=== PATIENT | male | born 1970 | race Caucasian/White ===

== ENCOUNTER 2018-02-12 15:45 | Emergency (ER) | payer OTHER ==
[~2018-02-12] VITALS: Ht 170.2 cm; Wt 91.9 kg
[~2018-02-12 15:45] MED LIST: NXM/40 PO; ZALE10CA PO; ZLF/100 PO; ZOLP10TA6 PO
[2018-02-12 15:53] VITALS: TEMP 36.8; Ht 170.2 cm; Wt 91.9 kg
--- NOTE | 2018-02-12 16:58 | DIAGNOSTIC IMAGING REPORT ---
LEFT HIP 2 VIEWS CLINICAL HISTORY: Fall with left hip pain. FINDINGS: AP and frog-leg views of the left hip are obtained. No prior studies are available for comparison at the time of dictation. The skeletal structures are well mineralized. No fracture is identified in the left hip or the visualized left hemipelvis. The joint space of the hip is preserved. The overlying soft tissues are normal in appearance. IMPRESSION: No acute bony abnormality is identified in the left hip. Electronically signed by: Chance Farrell M.D. 02/12/2018 4:56 PM Dictated Date/Time: 02/12/2018 4:56 PM
[2018-02-12] MEDS ORDERED: TRAM-10 PO (17:06)
[2018-02-12 17:15] VITALS: BP 137/84; PULSE 84; O2SAT 98
--- NOTE | 2018-02-13 01:19 | EMERGENCY ROOM VISIT NOTE ---
History First contact with patient: 16:03 Chief Complaint: HIP PAIN Stated Complaint: PAIN IN LEFT HIP S/P WORK [employer] History of Present Illness The patient is a 47 year old male who presents to the Emergency Room with complaints of left hip pain after he twisted his left ankle yesterday while walking down a flight of steps. The patient reports that the injury happened at around 7:35 AM. The patient reports that he fell, striking his left knee on the floor, but denies any ankle or knee pain. He reports pain over the lateral left hip. The patient reports a prior history of back issues and sciatica, but reports that this feels different. He currently denies any back discomfort. Weightbearing worsens his pain to a 6 out of 10. He denies any paresthesias or numbness of the left lower extremity. Review of Systems 10 system review was performed and was negative except for pertinent positives and negatives as indicated in history of present illness Past Medical/Surgical History Medical Problems: (1) Chronic Sinusitis Nec (2) Deviated Nasal Septum (3) Tobacco Use Disorder Family History Unremarkable Social History Smoking Status: Current Every Day Smoker Alcohol Use: occasionally Marital Status: Housing Status: lives with family Occupation Status: employed Current/Historical Medications Scheduled Esomeprazole Magnesium (Nexium), 40 MG PO DAILY Sertraline HCl (Sertraline HCl), 150 MG PO DAILY Scheduled PRN Tramadol (Ultram), 1 TAB PO Q4H PRN for Pain Zaleplon (Zaleplon), 10 MG PO HS PRN for Sleep Zolpidem Tartrate (Zolpidem Tartrate), 10 MG PO HS PRN for Sleep Physical Exam Vital Signs Date Time Temp Pulse Resp B/P (MAP) Pulse Ox O2 Delivery O2 Flow Rate FiO2 02/12/18 17:15 84 16 137/84 98 02/12/18 15:53 36.8 96 17 136/83 95 Room Air Physical Exam CONSTITUTIONAL: Healthy and well nourished. Alert and oriented X 3 with positive affect. Patient does not appear in any acute distress. HEENT: Normocephalic, atraumatic. Pupils equal, round and reactive. NECK: Full active range of motion without discomfort. MUSCULOSKELETAL: Examination of the left hip does not show any obvious edema or ecchymosis. He has no tenderness to palpation through the left SI joint or sciatic notch. He has mild discomfort with internal and external rotation of the hip. He has a mildly positive sitting straight leg raise. Otherwise the patient has no tenderness to palpation about the knee or ankle region. Pedal pulses are intact. INTEGUMENTARY: No rash or other significant dermatologic conditions noted. NEUROLOGIC: Left lower extremity is sensory intact. Medical Decision & Procedures ER Provider Diagnostic Interpretation: My interpretation of left hip x-rays does not show any acute fractures or dislocations. Radiologist report is as follows: LEFT HIP 2 VIEWS CLINICAL HISTORY: Fall with left hip pain. FINDINGS: AP and frog-leg views of the left hip are obtained. No prior studies are available for comparison at the time of dictation. The skeletal structures are well mineralized. No fracture is identified in the left hip or the visualized left hemipelvis. The joint space of the hip is preserved. The overlying soft tissues are normal in appearance. IMPRESSION: No acute bony abnormality is identified in the left hip. ED Course Patient history and physical exam were performed. Nurse's notes were reviewed. Vital signs were reviewed and were normal. X-rays of the left hip were normal. The patient was encouraged to limit on feet activities, including heavy lifting and sitting for long periods of time. Although the patient has isolated hip pain, he was advised that this could also be sciatica since he does have a mild positive sitting straight leg raise. I did encourage the patient to follow-up with his Worker's Compensation physician for further reevaluation and management. He was encouraged to alternate ibuprofen and Tylenol as needed for pain. The patient refused any prescription analgesics, was happy with plan of care, and rated his discomfort a 4 out of 10 at the conclusion of my exam. Medical Decision Medication Reconcilliation Current Medication List: was personally reviewed by me Blood Pressure Screening Patient's blood pressure: Normal blood pressure Impression Primary Impression: Left hip pain Additional Impressions: Status post fall Work related injury Departure Information Prescriptions Tramadol (Ultram) 50 Mg Tab 1 TAB PO Q4H Y for Pain, #15 TAB For Initial Treatment Prov: Sagar Sunshine PA 02/12/18 Referrals Cristian Hunter M.D. (PCP) Patient Instructions [facility] Problem Qualifiers
== END 2018-02-12 17:16 | disposition home or self-care (01) ==
LOC: C.EDB 15:46 → C.EDD 17:16
DX: M25.552 Pain in left hip (principal); M25.572 Pain in left ankle and joints of left foot; X50.1XXA Overexertion from prolonged static or awkward postures, initial encounter; W10.9XXA Fall (on) (from) unspecified stairs and steps, initial encounter; W22.8XXA Striking against or struck by other objects, initial encounter; Y99.0 Civilian activity done for income or pay; F17.200 Nicotine dependence, unspecified, uncomplicated; Z79.899 Other long term (current) drug therapy

== ENCOUNTER 2019-07-03 04:11 | Observation (INO) ==
--- OUTSIDE RECORDS SUMMARY | 2019-07-03 04:15 | External Medical Summary | Continuity of Care Document ---
:1970 Author Name Mathew Suarez Address Unavailable Unavailable , Care Team Providers Name Role Phone Bret Suarez Unavailable [email or web address] [email or web address], [email or web address] Unavailable Unavailable Problems Active medical history not documented Allergies and Adverse Reactions Allergy history not documented Medications Medications not documented Procedures Procedures not documented Immunizations Immunizations not documented Plan of Treatment Planned Observations Planned Goals not documented Results No Known Results Results not documented Encounters Appointment; Alverto Queen M.D. 19-Mar-2011 16:00 Encounter Diagnosis: Problem not documented
--- OUTSIDE RECORDS SUMMARY | 2019-07-03 04:15 | External Medical Summary | Continuity of Care Document ---
:1970 Author Name Mathew Suarez Address Unavailable Unavailable , Care Team Providers Name Role Phone Bret Suarez Unavailable [email or web address] [email or web address], UNKNOWN Unavailable Unavailable Problems Active medical [...]
[2019-07-03 04:49] LABS: Hematocrit (blood only) 45.6 % (42-52); Hemoglobin 15.8 g/dL (14.0-18.0); Mean Corpuscular Hemoglobin 30.8 pg (25-34); Mean Corpuscular Hgb Conc 34.6 g/dL (32-36); Mean Corpuscular Volume 88.9 fL (80-100); Mean Platelet Volume 9.3 fL (7.4-10.4); Platelet Count 203 K/uL (130-400); RDW Coefficient of Variation 12.6 % (11.5-14.5); RDW Standard Deviation 41.4 fL (36.4-46.3); Red Blood Count 5.13 M/uL (4.7-6.1); White Blood Count 12.41 K/uL (4.8-10.8)
[2019-07-03 04:59] LABS: Partial Thromboplastin Ratio 1.1; Partial Thromboplastin Time 29.1 Seconds (21.0-31.0); Prothrombin Time 10.2 Seconds (9.0-12.0)
[2019-07-03 05:14] LABS: Blood Urea Nitrogen 15 mg/dl (7-18); Carbon Dioxide 27 mmol/L (21-32); Chloride 104 mmol/L (98-107); Creatinine Clr Calc Pharmacy 97.5 ml/min; Est GFR (African American) 99.6; Est GFR (Non-African American) 85.9; Potassium 3.7 mmol/L (3.5-5.1); Sodium 137 mmol/L (136-145)
[2019-07-03 05:15] LABS: Alanine Aminotransferase 28 U/L (12-78); Albumin Globulin Ratio 0.9 (0.9-2); Albumin Level 3.8 gm/dl (3.4-5.0); Alkaline Phosphatase 69 U/L (45-117); Aspartate Aminotransferase 17 U/L (15-37); Bilirubin,Total 0.5 mg/dl (0.2-1); Calcium 8.8 mg/dl (8.5-10.1); Globulin 4.4 gm/dl (2.5-4.0); Glucose 112 mg/dl (70-99); Total Protein 8.2 gm/dl (6.4-8.2); Troponin I < 0.015 ng/ml (0-0.045)
[2019-07-03] MEDS ORDERED: CLOPIDOGREL BISULFATE 300 MG TAB PO STA (05:34)
[2019-07-03] MEDS ORDERED: SIMVASTATIN 40 MG TAB PO STA (05:34)
[2019-07-03 05:52] LABS: Basophils # (auto) 0.02 K/uL (0-0.2); Basophils % (auto) 0.2 %; Eosinophils % (auto) 2.4 %; Immature Granulocytes # (auto) 0.02 K/uL (0.00-0.02); Immature Granulocytes % (auto) 0.2 %; Lymphocytes # (auto) 5.26 K/uL (1.2-3.4); Lymphocytes % (auto) 42.4 %; Monocytes % (auto) 4.8 %; Neutrophils # (auto) 6.21 K/uL (1.4-6.5); RBC Morphology Unremarkable
[2019-07-03] MEDS: SODIUM CHLORIDE 0.9% 500 ML IV SCH ×2 (06:07→10:26)
[2019-07-03] MEDS ORDERED: OPTIRAY 320 125ml IV PRN (06:08)
--- NOTE | 2019-07-03 06:14 | CT Scan Report ---
CT head/brain wo con CT DOSE: 614.27 mGy.cm HISTORY: Stroke evaluation TECHNIQUE: Multiaxial CT images of the head were performed without the use of intravenous contrast. A dose lowering technique was utilized adhering to the principles of ALARA. Comparison: None. Findings: The paranasal sinuses and mastoid air cells are clear. The calvarium and skull base are int act. The ventricles and sulci are within normal limits. There is no mass, hematoma, midline shift, or acute infarct. Impression: No acute intracranial abnormality. ACT 112: Negative or not required by law. The above report was generated using voice recognition software. It may contain grammatical, syntax or spelling errors. Electronically signed by: Obey Issa M.D. 07/03/2019 6:12 AM
--- NOTE | 2019-07-03 06:20 | History & Physical Report ---
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 MRI/MRA of the brain, 2D echo for additional stroke work-up Neurology consult RE TIA Permissive hypertension for now Check hemoglobin A1c, lipid profile nicotine patch PRN DVT prophylaxis per Lovenox subcu Full code History of Present Illness Chief Complaint: Left facial numbness, left upper extremity numbness Primary Care Provider: Cristian Hunter MD History obtained from patient, family, and records. Medical history significant for EMILE on CPAP, mood disorder, GERD, ongoing tobacco abuse. 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 Patient also noted transient left-sided facial, left upper extremity numbness symptoms along with achy headache symptoms without blurred vision. May have had a short- lived episode sometime ago as per . Stroke alert called upon arrival at the ER. Symptoms currently improving as per patient. 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 Allergies Allergy/AdvReac Type Severity Reaction Status Date / Time No Known Allergies Allergy Unverified 07/03/19 04:49 Home Medications Home Medications Medication Instructions Recorded Confirmed Type esomeprazole magnesium [Nexium] 40 mg PO DAILY 07/03/19 07/03/19 History sertraline 200 mg PO DAILY 07/03/19 07/03/19 History zolpidem 10 mg PO HS PRN 07/03/19 07/03/19 History Past Med/Surg History Medical History (Updated 07/03/19 @ 08:24 by Brandon Pearce MD) Depression Strain of right gastrocnemius muscle (Acute) Family History (Updated 07/03/19 @ 06:00 by Kristian Ventura) Other Stroke Social History (Updated 07/03/19 @ 06:00 by Kristian Ventura) Preferred Language: [place] Communication Ability: Effective In Flight Technician Required: No Beliefs That Will Affect Care: None Current Living Situation: Spouse current occupational status: employed Other Information That Helps Us Care for You: No Feels Safe at Home: Yes Safety Concerns: Feels Safe At This Time Smoking Status: Current every day smoker Tobacco Type: cigarettes ; Cigarettes Per Day: 10 ; Do You Dip or Chew Tobacco: No ; Second Hand Exposure: No ; Tobacco Cessation Education Requested by Patient: No Hx Alcohol Use: Yes Hx Substance Use: No Review of Systems Review of Systems: As per HPI, all 10 systems reviewed, all other ROS negative Physical Exam Physical Exam: GENERAL: Comfortable, pleasant, obese, no respiratory distress SKIN: Normal color, warm HEENT: Healed scar on the forehead, pink palpebral conjunctivae, no ptosis, moist buccal mucosa NECK : Supple, short neck, no tenderness CHEST : CTA, no tenderness HEART : RRR, no obvious murmurs ABDOMEN: Some distention, nontender EXTREMITIES : No LE swelling/tenderness, no other conspicuous deformities noted NEUROLOGIC : Coherent, no facial asymmetry, no other gross focality Results & Data Vital Signs (Past 12 Hours) Vital Signs Temp Pulse Resp BP Pulse Ox 07/03/19 06:07 88 18 143/96 H 96 07/03/19 05:30 93 H 22 140/91 95 07/03/19 05:00 94 H 16 142/98 H 96 07/03/19 04:31 94 H 23 151/77 H 97 07/03/19 04:27 100 H 24 136/96 97 07/03/19 04:26 36.8 C 100 H 18 136/96 97 Laboratory Results Laboratory Results WBC 12.41 K/uL (4.8-10.8) H 07/03/19 04:37 RBC 5.13 M/uL (4.7-6.1) 07/03/19 04:37 Hgb 15.8 g/dL (14.0-18.0) 07/03/19 04:37 Hct 45.6 % (42-52) 07/03/19 04:37 MCV 88.9 fL (80-100) 07/03/19 04:37 MCH 30.8 pg (25-34) 07/03/19 04:37 MCHC 34.6 g/dL (32-36) 07/03/19 04:37 RDW Std Deviation 41.4 fL (36.4-46.3) 07/03/19 04:37 RDW Coeff of Imelda 12.6 % (11.5-14.5) 07/03/19 04:37 Plt Count 203 K/uL (130-400) 07/03/19 04:37 MPV 9.3 fL (7.4-10.4) 07/03/19 04:37 Immature Gran % (Auto) 0.2 % 07/03/19 04:37 Neut % (Auto) 50.0 % 07/03/19 04:37 Lymph % (Auto) 42.4 % 07/03/19 04:37 [place] % (Auto) 4.8 % 07/03/19 04:37 Eos % (Auto) 2.4 % 07/03/19 04:37 Baso % (Auto) 0.2 % 07/03/19 04:37 Immature Gran # (Auto) 0.02 K/uL (0.00-0.02) 07/03/19 04:37 Neut # (Auto) 6.21 K/uL (1.4-6.5) 07/03/19 04:37 Lymph # (Auto) 5.26 K/uL (1.2-3.4) H 07/03/19 04:37 [place] # (Auto) 0.60 K/uL (0.11-0.59) H 07/03/19 04:37 Eos # (Auto) 0.30 K/uL (0-0.5) 07/03/19 04:37 Baso # (Auto) 0.02 K/uL (0-0.2) 07/03/19 04:37 RBC Morphology Unremarkable 07/03/19 04:37 PT 10.2 Seconds (9.0-12.0) 07/03/19 04:37 INR 1.0 (0.9-1.1) 07/03/19 04:37 APTT 29.1 Seconds (21.0-31.0) 07/03/19 04:37 PTT Ratio 1.1 07/03/19 04:37 Sodium 137 mmol/L (136-145) 07/03/19 04:37 Potassium 3.7 mmol/L (3.5-5.1) 07/03/19 04:37 Chloride 104 mmol/L (98-107) 07/03/19 04:37 Carbon Dioxide 27 mmol/L (21-32) 07/03/19 04:37 Anion Gap 6.0 (3-11) 07/03/19 04:37 BUN 15 mg/dl (7-18) 07/03/19 04:37 Creatinine 1.02 mg/dl (0.6-1.4) 07/03/19 04:37 Est Cr Clr Drug Dosing 97.5 ml/min 07/03/19 04:37 Est GFR ( Amer) 99.6 07/03/19 04:37 Est GFR (Non-Af Amer) 85.9 07/03/19 04:37 BUN/Creatinine Ratio 15.0 (10-20) 07/03/19 04:37 Glucose 112 mg/dl (70-99) H 07/03/19 04:37 POC Glucose 109 (70-99) H 07/03/19 04:36 Calcium 8.8 mg/dl (8.5-10.1) 07/03/19 04:37 Magnesium 2.0 mg/dl (1.8-2.4) 07/03/19 04:37 Total Bilirubin 0.5 mg/dl (0.2-1) 07/03/19 04:37 AST 17 U/L (15-37) 07/03/19 04:37 ALT 28 U/L (12-78) 07/03/19 04:37 Alkaline Phosphatase 69 U/L (45-117) 07/03/19 04:37 Troponin I < 0.015 ng/ml (0-0.045) 07/03/19 04:37 Total Protein 8.2 gm/dl (6.4-8.2) 07/03/19 04:37 Albumin 3.8 gm/dl (3.4-5.0) 07/03/19 04:37 Globulin 4.4 gm/dl (2.5-4.0) H 07/03/19 04:37 Albumin/Globulin Ratio 0.9 (0.9-2) 07/03/19 04:37 Specimen Hemolysis 07/03/19 04:37 Blood Type Cancelled 07/03/19 04:37 Antibody Screen Cancelled 07/03/19 04:[address] head initial read: No CT evidence of acute intracranial process. CT angio head and neck read pending EKG as per my interpretation: Rate 95, NSR, normal axis, no ischemia
--- NOTE | 2019-07-03 06:25 | CT Scan Report ---
CT angio head w con HISTORY: Mental status change stroke eval TECHNIQUE: Multiaxial CT angiography of the head was performed IV contrast: None. Maximum intensit y projection images were also obtained. A dose lowering technique was utilized adhering to the princ iplSung. COMPARISON: None. FINDINGS: There is no mass, hematoma, midline shift, or acute infarct. 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 There is no sig nificant stenosis, occlusion, or aneurysm seen within the bilateral ACAs, MCAs, or machine repair person. IMPRESSION: No significant stenosis, occlusion, or aneurysm within the [place]. ACT 112: Negative or not required by law. The above report was generated using voice recognition software. It may contain grammatical, syntax or spelling errors. Electronically signed by: Obey Issa M.D. 07/03/2019 6:24 AM
--- NOTE | 2019-07-03 06:29 | CT Scan Report ---
CT angio neck with con HISTORY: Mental status change stroke eval TECHNIQUE: Multiaxial CT angiography of the neck was performed IV contrast: 100 cc nonionic All eun urements were calculated based on NASCET criteria. Maximum intensity projection images were also obt ained. A dose lowering technique was utilized adhering to the principles of ALARA. COMPARISON STUDY: None. FINDINGS: The aortic arch and proximal great vessels are widely patent. There is no significant sten osis, occlusion, or dissection identified within the bilateral common carotid, internal carotid, or v ertebral arteries. IMPRESSION: No significant stenosis, occlusion, or dissection identified within the carotid or vertebral arteries . ACT 112: Negative or not required by law. The above report was generated using voice recognition software. It may contain grammatical, syntax or spelling errors. Electronically signed by: Obey Issa M.D. 07/03/2019 6:27 AM
--- NOTE | 2019-07-03 07:24 | Emergency Department Note ---
Entered by Kristian Ventura acting as a scribe for History of Present Illness General Chief complaint: Stroke/CVA Symptoms Stated complaint: BP UP, CHEST PRESSURE, NUMBNESS LT ARM AND FACE Time Seen by Provider: 07/03/19 04:33 Source: patient History of Present Illness Onset (ago): hour(s) (this morning at 0200) Location: head Pain Consistency: + constant Quality: + other (stroke-like symptoms) Associated symptoms: + other (Positive for left facial numbness and mild chest pressure.) The patient is a 49 year old male who presents to the emergency department with complaints of constant stroke-like symptoms beginning this morning at 0200. The patient states that he was reading emails at work this morning when his symptoms began. He notes that he could not understand what the emails said or remember who the people were who sent them. He reports that he then had a shock in his head. The patient states that he has left facial numbness. He notes that he also developed mild chest pressure at that time. He reports that he has a history of depression. The patient states that his grandmother had a stroke. Home Medications Home Medications Medication Instructions Recorded Confirmed Type esomeprazole magnesium [Nexium] 40 mg PO DAILY 07/03/19 07/03/19 History sertraline 200 mg PO DAILY 07/03/19 07/03/19 History zolpidem 10 mg PO HS PRN 07/03/19 07/03/19 History Allergies Allergy/AdvReac Type Severity Reaction Status Date / Time No Known Allergies Allergy Unverified 07/03/19 04:49 Past Med/Surg History Medical History (Updated 07/03/19 @ 14:09 by Elina Palacios DO) Depression Strain of right gastrocnemius muscle (Acute) Family History (Updated 07/03/19 @ 06:00 by Kristian Ventura) Other Stroke Social History (Updated 07/03/19 @ 06:00 by Kristian Ventura) Preferred Language: Romanian Communication Ability: Effective Ophthalmic Surgeon Required: No Beliefs That Will Affect Care: None Current Living Situation: Spouse current occupational status: employed Other Information That Helps Us Care for You: No Feels Safe at Home: Yes Safety Concerns: Feels Safe At This Time Smoking Status: Current every day smoker Tobacco Type: cigarettes ; Cigarettes Per Day: 10 ; Do You Dip or Chew Tobacco: No ; Second Hand Exposure: No ; Tobacco Cessation Education Requested by Patient: No Hx Alcohol Use: Yes Hx Substance Use: No Review of Systems See HPI for pertinent positives & negatives. and A total of 10 systems reviewed and were otherwise negative Physical Exam Vital Signs Vital Signs - 24 hr 07/03/19 04:26 07/03/19 04:27 07/03/19 04:31 Temperature 36.8 C Temperature Source Oral Pulse Rate 100 H 100 H 94 H Pulse Rate from SpO2 Sensor 100 H 94 H Pulse Rhythm Regular Pulse Strength Normal Respiratory Rate 18 24 23 Respiratory Effort / Characteristics Non-Labored Spontaneous Respiratory Depth Normal Blood Pressure 136/96 136/96 151/77 H Blood Pressure Mean 109 106 112 Blood Pressure Position Sitting Pulse Oximetry 97 97 97 Oxygen Delivery Method Room Air Sepsis Recent Fever Within 48 Hours No Sepsis Action Taken by Nursing No Action Required 07/03/19 05:00 07/03/19 05:30 07/03/19 06:07 Temperature Temperature Source Pulse Rate 94 H 93 H 88 Pulse Rate from SpO2 Sensor 94 H 93 H 88 Pulse Rhythm Pulse Strength Respiratory Rate 16 22 18 Respiratory Effort / Characteristics Respiratory Depth Blood Pressure 142/98 H 140/91 143/96 H Blood Pressure Mean 105 103 104 Blood Pressure Position Pulse Oximetry 96 95 96 Oxygen Delivery Method Sepsis Recent Fever Within 48 Hours Sepsis Action Taken by Nursing HEENT: Head - normocephalic and atraumatic. Pupils are equal, round, and reactive to light. Extraocular eye muscles are intact and sclera are anicteric. Nose - moist nasal mucosa without discharge. Mouth - moist buccal mucosa. Orop harynx is nonerythematous and there is no tonsillar exudate or edema noted. Neck: Supple; no JVD, nuchal rigidity, cervical lymphadenopathy, or auscultated bruits. Heart: Regular rate and rhythm. There is a normal S1 and S2 with no murmurs, clicks, or gallops appreciated. Lungs: Clear to auscultation bilaterally with no wheezes, rales, or rhonchi. Abdomen: Soft, completely nontender, nondistended, with good bowel sounds. There are no palpable pulsatile masses or hepatosplenomegaly. There is no guarding, rigidity, or rebound noted. Extremities: No evidence of cyanosis, clubbing, or edema. There are easily palpable peripheral pulses. Neuro:The patient is slow to answer questions muscle strength is 5/5 in all 4 extremities. The patient has equal rectification printer strength and equal pedal push and pull. NIH stroke score of 2, droop to left corner of mouth and left eyelid, numbness to left side of face. Course Course 0428: The patient was evaluated in room A1. A stroke alert was called. A complete history and physical examination were performed. Nursing notes and previous electronic medical records were reviewed. IV lock was established and labs were drawn as above. A twelve-lead EKG was obtained 0444: I discussed the patient's case with Dr. Ramirez - Cherie Valentine. 0458: I rechecked the patient. He is feeling better. His mind seems more clear, but he has a worsening left eyelid droop. Dr. Ramirez is on Telestroke. 0528: I rediscussed the patient's case with Dr. Ramirez. He thinks that the patient most likely had a posterior MCA stroke on the right. He recommends obtaining a CTA of the head/neck with MRI later as an inpatient. He suggests dual antiplatelet therapy. The patient already had aspirin, so he recommends loading the patient with 300mg Plavix. He suggests maintenance IV fluids and initiating 40mg of Zocor. He says to make sure that the patient's magnesium is at least 2. 0607: Simvastatin 40mg PO, Clopidogrel Bisulfate 300mg PO, Sodium Chloride 500 mls @ 125 mls/hr IV 0542: Upon reevaluation, the patient is stable. I discussed the findings and the treatment plan with the patient. He expresses agreement and understanding. I spoke with Dr. Pearce of the [facility]. The patient will be evaluated for further management. Consultations Consultation #1: [id number]: I discussed the patient's case with Dr. Ramirez - Cherie Valentine. 0528: I rediscussed the patient's case with Dr. Ramirez. He thinks that the patient most likely had a posterior MCA stroke on the right. He recommends obtaining a CTA of the head/neck with MRI later as an inpatient. He suggests dual antiplatelet therapy. The patient already had aspirin, so he recommends loading the patient with 300mg Plavix. He suggests maintenance IV fluids and initiating 40mg of Zocor. He says to make sure that the patient's magnesium is at least 2. Time: 04:44 Consultation #2: I reviewed the patient's case with Dr. Pearce - HospitalistMarco Antonio. He will evaluate the patient for further management. Time: 05:42 Administered Medications Atorvastatin Calcium (Lipitor) 40 mg PO HS TEJAS Stop: 08/02/19 20:59 Last Admin: 07/03/19 20:57 Dose: 40 mg Documented by: [id number] Enoxaparin Sodium (Lovenox) 40 mg SQ QAM TEJAS Stop: 08/02/19 10:20 Last Admin: 07/03/19 12:03 Dose: 40 mg Documented by: [id number] Pantoprazole Sodium (Protonix) 40 mg PO DAILY TEJAS Stop: 08/02/19 10:20 Last Admin: 07/03/19 12:03 Dose: 40 mg Documented by: [id number] Sertraline HCl (Zoloft) 200 mg PO DAILY TEJAS Stop: 08/02/19 10:20 Last Admin: 07/03/19 12:03 Dose: 200 mg Documented by: [id number] Zolpidem Tartrate (Ambien) 5 mg PO HS PRN PRN Reason: Sleep Stop: 08/02/19 20:36 Last Admin: 07/03/19 20:57 Dose: 5 mg Documented by: [id number] Discontinued Medications Clopidogrel Bisulfate (Plavix) 300 mg PO NOW STA Stop: 07/03/19 05:35 Last Admin: 07/03/19 06:07 Dose: 300 mg Documented by: [id number] Sodium Chloride (Nss) 500 mls @ 125 mls/hr IV .Q4H TEJAS Stop: 08/02/19 05:44 Last Admin: 07/03/19 10:26 Dose: Not Given Documented by: [id number] Infusion: 07/03/19 10:26 Dose: 0 mls/hr Documented by: [id number] Admin: 07/03/19 06:07 Dose: 125 mls/hr Documented by: [id number] Lactated Ringer's (Lr) 1,000 mls @ 40 mls/hr IV .Q24H ONE Stop: 07/04/19 10:20 Last Infusion: 07/03/19 14:13 Dose: 0 mls/hr Documented by: [id number] Admin: 07/03/19 12:02 Dose: 40 mls/hr Documented by: [id number] Ioversol (Optiray 320 125ml) 120 ml IV ONCE PRN PRN Reason: Interaction Checking Stop: 07/07/19 06:07 Last Admin: 07/03/19 06:08 Dose: 120 ml Documented by: [id number] Potassium Chloride (Klor-Con M20) 40 meq PO NOW STA Stop: 07/03/19 10:22 Last Admin: 07/03/19 12:03 Dose: 40 meq Documented by: [id number] Simvastatin (Zocor) 40 mg PO NOW STA Stop: 07/03/19 05:35 Last Admin: 07/03/19 06:07 Dose: 40 mg Documented by: [id number] Critical Care Time Critical Care Time: Yes Total Critical Care Time: 45 I have personally spent 45 minutes of critical care time in the direct management of this patient. This includes bedside care, interpretation of diagnostic studies, and testing, discussion with consultants, patient, and fam nolan members, and other required patient management activities. This 45 minutes is in excess of all separately billable procedures. Medical Decision Making Differential Diagnosis Differential diagnoses include: Mullins's palsy, intracranial hemorrhage, acute CVA, and TIA. Medical Records Attestation: I reviewed the patient's medical records. Home Medications Current Medication List: was personally reviewed by me Laboratory Data Attestation: I reviewed the patient's lab results. Result diagrams: 07/04/19 06:57 07/04/19 06:57 Lab Results 07/03/19 07/03/19 07/03/19 Range/Units 04:36 04:37 04:37 WBC 12.41 H (4.8-10.8) K/uL RBC 5.13 (4.7-6.1) M/uL Hgb 15.8 (14.0-18.0) g/dL Hct 45.6 (42-52) % MCV 88.9 (80-100) fL MCH 30.8 (25-34) pg MCHC 34.6 (32-36) g/dL RDW Std Deviation 41.4 (36.4-46.3) fL RDW Coeff of Imelda 12.6 (11.5-14.5) % Plt Count 203 (130-400) K/uL MPV 9.3 (7.4-10.4) fL Immature Gran % (Auto) 0.2 % Neut % (Auto) 50.0 % Lymph % (Auto) 42.4 % [place] % (Auto) 4.8 % Eos % (Auto) 2.4 % Baso % (Auto) 0.2 % Immature Gran # (Auto) 0.02 (0.00-0.02) K/uL Neut # (Auto) 6.21 (1.4-6.5) K/uL Lymph # (Auto) 5.26 H (1.2-3.4) K/uL [place] # (Auto) 0.60 H (0.11-0.59) K/uL Eos # (Auto) 0.30 (0-0.5) K/uL Baso # (Auto) 0.02 (0-0.2) K/uL RBC Morphology Unremarkable PT 10.2 (9.0-12.0) Seconds INR 1.0 (0.9-1.1) APTT 29.1 (21.0-31.0) Seconds PTT Ratio 1.1 Sodium (136-145) mmol/L Potassium (3.5-5.1) mmol/L Chloride (98-107) mmol/L Carbon Dioxide (21-32) mmol/L Anion Gap (3-11) BUN (7-18) mg/dl Creatinine (0.6-1.4) mg/dl Est Cr Clr Drug Dosing ml/min Est GFR ( Amer) Est GFR (Non-Af Amer) BUN/Creatinine Ratio (10-20) Glucose (70-99) mg/dl POC Glucose 109 H (70-99) Estimat Average Glucose mg/dl Hemoglobin A1c (4.5-5.6) % Calcium (8.5-10.1) mg/dl Magnesium (1.8-2.4) mg/dl Total Bilirubin (0.2-1) mg/dl AST (15-37) U/L ALT (12-78) U/L Alkaline Phosphatase (45-117) U/L Troponin I (0-0.045) ng/ml Total Protein (6.4-8.2) gm/dl Albumin (3.4-5.0) gm/dl Globulin (2.5-4.0) gm/dl Albumin/Globulin Ratio (0.9-2) TSH (0.300-4.500) uIu/ml Specimen Hemolysis Blood Type Antibody Screen 07/03/19 07/03/19 07/03/19 Range/Units 04:37 04:37 04:37 WBC (4.8-10.8) K/uL RBC (4.7-6.1) M/uL Hgb (14.0-18.0) g/dL Hct (42-52) % MCV (80-100) fL MCH (25-34) pg MCHC (32-36) g/dL RDW Std Deviation (36.4-46.3) fL RDW Coeff of Imelda (11.5-14.5) % Plt Count (130-400) K/uL MPV (7.4-10.4) fL Immature Gran % (Auto) % Neut % (Auto) % Lymph % (Auto) % [place] % (Auto) % Eos % (Auto) % Baso % (Auto) % Immature Gran # (Auto) (0.00-0.02) K/uL Neut # (Auto) (1.4-6.5) K/uL Lymph # (Auto) (1.2-3.4) K/uL [place] # (Auto) (0.11-0.59) K/uL Eos # (Auto) (0-0.5) K/uL Baso # (Auto) (0-0.2) K/uL RBC Morphology PT (9.0-12.0) Seconds INR (0.9-1.1) APTT (21.0-31.0) Seconds PTT Ratio Sodium 137 (136-145) mmol/L Potassium 3.7 (3.5-5.1) mmol/L Chloride 104 (98-107) mmol/L Carbon Dioxide 27 (21-32) mmol/L Anion Gap 6.0 (3-11) BUN 15 (7-18) mg/dl Creatinine 1.02 (0.6-1.4) mg/dl Est Cr Clr Drug Dosing 97.5 ml/min Est GFR ( Amer) 99.6 Est GFR (Non-Af Amer) 85.9 BUN/Creatinine Ratio 15.0 (10-20) Glucose 112 H (70-99) mg/dl POC Glucose (70-99) Estimat Average Glucose 137 mg/dl Hemoglobin A1c 6.4 H (4.5-5.6) % Calcium 8.8 (8.5-10.1) mg/dl Magnesium 2.0 (1.8-2.4) mg/dl Total Bilirubin 0.5 (0.2-1) mg/dl AST 17 (15-37) U/L ALT 28 (12-78) U/L Alkaline Phosphatase 69 (45-117) U/L Troponin I < 0.015 (0-0.045) ng/ml Total Protein 8.2 (6.4-8.2) gm/dl Albumin 3.8 (3.4-5.0) gm/dl Globulin 4.4 H (2.5-4.0) gm/dl Albumin/Globulin Ratio 0.9 (0.9-2) TSH (0.300-4.500) uIu/ml Specimen Hemolysis Blood Type Cancelled Antibody Screen Cancelled 07/03/19 07/03/19 Range/Units 04:37 05:24 WBC (4.8-10.8) K/uL RBC (4.7-6.1) M/uL Hgb (14.0-18.0) g/dL Hct (42-52) % MCV (80-100) fL MCH (25-34) pg MCHC (32-36) g/dL RDW Std Deviation (36.4-46.3) fL RDW Coeff of Imelda (11.5-14.5) % Plt Count (130-400) K/uL MPV (7.4-10.4) fL Immature Gran % (Auto) % Neut % (Auto) % Lymph % (Auto) % [place] % (Auto) % Eos % (Auto) % Baso % (Auto) % Immature Gran # (Auto) (0.00-0.02) K/uL Neut # (Auto) (1.4-6.5) K/uL Lymph # (Auto) (1.2-3.4) K/uL [place] # (Auto) (0.11-0.59) K/uL Eos # (Auto) (0-0.5) K/uL Baso # (Auto) (0-0.2) K/uL RBC Morphology PT (9.0-12.0) Seconds INR (0.9-1.1) APTT (21.0-31.0) Seconds PTT Ratio Sodium (136-145) mmol/L Potassium (3.5-5.1) mmol/L Chloride (98-107) mmol/L Carbon Dioxide (21-32) mmol/L Anion Gap (3-11) BUN (7-18) mg/dl Creatinine (0.6-1.4) mg/dl Est Cr Clr Drug Dosing ml/min Est GFR ( Amer) Est GFR (Non-Af Amer) BUN/Creatinine Ratio (10-20) Glucose (70-99) mg/dl POC Glucose (70-99) Estimat Average Glucose mg/dl Hemoglobin A1c (4.5-5.6) % Calcium (8.5-10.1) mg/dl Magnesium (1.8-2.4) mg/dl Total Bilirubin (0.2-1) mg/dl AST (15-37) U/L ALT (12-78) U/L Alkaline Phosphatase (45-117) U/L Troponin I (0-0.045) ng/ml Total Protein (6.4-8.2) gm/dl Albumin (3.4-5.0) gm/dl Globulin (2.5-4.0) gm/dl Albumin/Globulin Ratio (0.9-2) TSH 3.830 (0.300-4.500) uIu/ml Specimen Hemolysis Blood Type A Positive Antibody Screen NEGATIVE Imaging Data Radiologist's Impression: Radiology results as stated below per my review and the radiologist's interpretation: CT HEAD: Comparison: None. Impression: No CT evidence of acute intracranial process. Incidental Findings: Mild mucosal thickening without sinus fluid level in the visualized segments. Old right lamina papyracea fracture. Radiologist: Francisco Gates MD. CT angio head w con FINDINGS: There is no mass, hematoma, midline shift, or acute infarct. Visualized intracranial internal carotid arteries, distal vertebral arteries, and basilar artery are widely patent. There is no significant stenosis, occlusion, or aneurysm seen within the bilateral ACAs, MCAs, or mechanical specialist. IMPRESSION: No significant stenosis, occlusion, or aneurysm within the upper [place]. ACT 112: Negative or not required by law. The above report was generated using voice recognition software. It may contain grammatical, syntax or spelling errors. Electronically signed by: Obey Issa M.D. 07/03/2019 6:[address] angio neck with con FINDINGS: The aortic arch and proximal great vessels are widely patent. There is no significant stenosis, occlusion, or dissection identified within the bilateral common carotid, internal carotid, or vertebral arteries. IMPRESSION: No significant stenosis, occlusion, or dissection identified within the carotid or vertebral arteries. ACT 112: Negative or not required by law. The above report was generated using voice recognition software. It may contain grammatical, syntax or spelling errors. Electronically signed by: Obey Issa M.D. 07/03/2019 6:27 AM ECG Data Attestation: I personally reviewed and interpreted this ECG as follows: Indication: + weakness Rate (beats per minute): 93 Rhythm: + normal sinus ECG Irwin: no Left axis deviation and no Right axis deviation ECG ST segments: no ST depression and no ST elevation Blood Pressure Blood Pressure Findings: Elevated blood pressure Blood Pressure Disposition: elevated BP felt to be situational MDM Narrative The patient is a 49 year old male who presents to the emergency department with complaints of constant stroke-like symptoms beginning this morning at 0200. The patient was in his usual state of health at work tonight when he suddenly realized he was unable to comprehend emails that he was reading or even recognize who they were from. He rested for some time and then tried again it was still unsuccessful. 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 He presents to the emergency department with his with some slow speech and obvious left-sided facial droop and facial numbness. No other focal findings were observed. A stroke alert was called and the patient went emergently for CT scan of the brain. This was negative. We participated in [employer] tele-stroke. I discussed the case with the neurologist and he recommended CTA of the head and neck and treating the patient with dual antiplatelet therapy. The patient had already taken aspirin and we gave him a dose of Plavix. The neurologist also recommended admission to the hospital and MRI/MRA of the brain and neck at a later time. The patient was not a TPA candidate since his symptoms seem to be improving. I discussed the case with the hospitalist and they will evaluate for further management. Impression & Plan Stroke Discharge Plan Visit Data *Final* Discharge Date/Time: 07/03/19 09:54 Chief Complaint: Stroke/CVA Symptoms Stated Complaint: BP UP, CHEST PRESSURE, NUMBNESS LT ARM AND FACE ED Provider: Margie Ortega Discharge Problem: Stroke Patient Disposition: Admitted As Inpatient Discharge Instructions Interventions: ED Discharge Assessment Last Done: 07/03/19 09:54 Discharge Problem: Stroke Qualifiers: CVA mechanism: unspecified Qualified Code(s): I63.9 - Cerebral infarction, unspecified The scribe's documentation has been prepared under my direction and personally reviewed by me in its entirety. I confirm that the note above accurately reflects all work, treatment, procedures, and medical decision making performed by me.
[2019-07-03 07:42] LABS: Estimated Average Glucose 137 mg/dl; Hemoglobin A1C 6.4 % (4.5-5.6)
[2019-07-03] MEDS ORDERED: NITROGLYCERIN SL 0.4 MG/TAB TAB SL PRN (10:21)
[2019-07-03] MEDS ORDERED: ACETAMINOPHEN 325 MG TAB PO PRN (10:21)
[2019-07-03] MEDS ORDERED: LACTATED RINGER'S 1,000 ML IV ONE (10:21)
[2019-07-03] MEDS ORDERED: PROMETHAZINE HCL 12.5 MG in SODIUM CHLORIDE 0.9% 50 ML IV PRN (10:21)
[2019-07-03] MEDS ORDERED: PHARMACIST DISCHARGE MED REC CONSULT PRN (10:21)
[2019-07-03] MEDS ORDERED: POTASSIUM CHLORIDE 20 MEQ TABCR PO STA (10:21)
[2019-07-03] MEDS ORDERED: TRAMADOL HCL 50 MG TABLET PO PRN (10:21)
[2019-07-03] MEDS ORDERED: LORazepam 0.25 MG/0.5 ML VIAL IV PRN (10:21)
--- NOTE | 2019-07-03 10:59 | Neurology Consultation ---
Date of Consultation July 03, 2019 Assessment & Plan (1) TIA (transient ischemic attack): A 49 year old male with history of chronic smoking and EMILE on CPAP admitted with intermittent left facial and arm numbness and intermittent language difficulty or aphasia suggestive of a probable TIA. CT Stroke protocol and MRI brain reviewed and am happy to report there is no evidence of ischemic stroke or high grade stenosis. Would recommend starting ASA 81 mg daily and Lipitor 40 mg daily. Discussed smoking cessation and encourgaed patient to use his CPAP for EMILE. HA1c suggestive of insulin resistance so patient will need to monitor as outpatient. Blood pressure appears well controlled with care home goal of SBP< 140, DBP<90 mm Hg. Would obtain TTE and telemetry for 24-hours. Neuro checks Q 4hr. Ok to discharge tomorrow. I provided patient with my contact card. He can follow up with me in [place] in 8-weeks. Patient agreed to plan of care and had no further questions. History of Present Illness Reason for Consultation: TIA Requesting Physician: Dr. Palacios Attending Physician: Elina Palacios, History of Present Illness A 49 year old male with history of EMILE on CPAP, chronic smoker, insomnia, and anxiety on SSRI presented to the ED early this morning for left facial and arm numbness and language difficulty. Denies similar symptoms. Symptoms resolved around 11 AM. Had left sided headache. Denies headache now or history of headaches. Denies history of stroke. He is not on ASA. No EtOH. No history of migraines. 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 No increased stressors. He was at work when symptoms occurred. Stroke alert was called in the ED. CT Stroke protocol was Negative. He did not receieve TPA. Allergies Allergy/AdvReac Type Severity Reaction Status Date / Time No Known Allergies Allergy Unverified 07/03/19 04:49 Home Medications Home Medications Medication Instructions Recorded Confirmed Type esomeprazole magnesium [Nexium] 40 mg PO DAILY 07/03/19 07/03/19 History sertraline 200 mg PO DAILY 07/03/19 07/03/19 History zolpidem 10 mg PO HS PRN 07/03/19 07/03/19 History Patient History Medical History (Updated 07/03/19 @ 08:24 by Brandon Pearce MD) Depression Strain of right gastrocnemius muscle (Acute) Family History (Updated 07/03/19 @ 06:00 by Kristian Ventura) Other Stroke Social History (Updated 07/03/19 @ 06:00 by Kristian Ventura) Preferred Language: Kazakh Communication Ability: Effective 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 Beliefs That Will Affect Care: None Current Living Situation: Spouse current occupational status: employed Other Information That Helps Us Care for You: No Feels Safe at Home: Yes Safety Concerns: Feels Safe At This Time Smoking Status: Current every day smoker Tobacco Type: cigarettes ; Cigarettes Per Day: 10 ; Do You Dip or Chew Tobacco: No ; Second Hand Exposure: No ; Tobacco Cessation Education Requested by Patient: No Hx Alcohol Use: Yes Hx Substance Use: No Physical Exam Physical Exam: EXAM: Constitutional: appearance normally developed, well nourished and non-obeseHead and Face: normocephalic and atraumatic Eyes: normal lids, normal conjunctiva Neck: supple Respiratory: normal effort Cardiovascular: normal pulses Abdomen: non distended Skin: no rashes, lesions, or ulcers noted Psychiatric: normal judgement and insight, normal mood and normal affect NEUROLOGIC EXAMINATION: Appearance: no acute distress Orientation: awake, alert and oriented x 3 Mental Status: alert Memory: Good Attention: normal Knowledge: appropriate Language: no aphasia Speech: no dysarthria Cranial Nerves: CN 2 - no visual defect on confrontation and pupils round, equal, reactive to light CN 3, 4, 6 - extra-ocular movements intact and no nystagmus CN 5 - facial sensation intact CN 7 - no facial asymmetry CN 8 - intact hearing CN 9, 10 - palate symmetric CN 11 - good shoulder shrug CN 12 - tongue midline Gait: stable, no ataxia and can perform tandem walking Coordination: no ataxia with finger to nose testing and heel to voss testing Sensory: intact and symmetric to light touch Muscle Tone: normal Muscle exam: 5/5 throughout Reflexes: Lira sign negative, no ankle clonus, toes down going Results & Data Vital Signs (Past 12 Hours) Vital Signs Temp Pulse Pulse Resp BP BP BP 07/03/19 10:22 36.8 C 93 H 20 116/81 07/03/19 09:54 96 H 20 130/79 07/03/19 08:55 99 H 16 123/82 07/03/19 07:31 85 20 114/77 07/03/19 06:07 88 18 143/96 H 07/03/19 05:30 93 H 22 140/91 07/03/19 05:00 94 H 16 142/98 H 07/03/19 04:31 94 H 23 151/77 H 07/03/19 04:27 100 H 24 136/96 07/03/19 04:26 36.8 C 100 H 18 136/96 Pulse Ox 07/03/19 10:22 93 07/03/19 09:54 95 07/03/19 08:55 95 07/03/19 07:31 96 07/03/19 06:07 96 07/03/19 05:30 95 07/03/19 05:00 96 07/03/19 04:31 97 07/03/19 04:27 97 07/03/19 04:26 97 Laboratory Results HA1c 6.4 Diagnostic Findings CTA head and neck: No large vessel occlusion or high grade stenosis MRI Brain: No evidence of acute stroke
--- NOTE | 2019-07-03 11:31 | Magnetic Resonance Report ---
MR angio head wo con HISTORY: Mental status change tia TECHNIQUE: 3-D [id number] MRA of the brain was performed without contrast. COMPARISON STUDY: None. FINDINGS: Visualized intracranial internal carotid arteries, distal vertebral arteries, and basilar a rtery are widely patent. There is no significant stenosis, occlusion, or aneurysm seen within the edgardo ateral ACAs, MCAs, or arabic professor. IMPRESSION: No significant stenosis, occlusion, or aneurysm within the [place]. ACT 112: Negative or not required by law. The above report was generated using voice recognition software. It may contain grammatical, syntax or spelling errors. Electronically signed by: Obey Issa M.D. 07/03/2019 11:30 AM
--- NOTE | 2019-07-03 11:39 | Magnetic Resonance Report ---
MR brain wo con HISTORY: Mental status change tia TECHNIQUE: Multiplanar multisequence MRI of the brain was performed without the use of contrast. COMPARISON STUDY: None. FINDINGS: There are no areas of restricted diffusion to suggest acute infarction. The midline structu res are intact. The paranasal sinuses are clear. The mastoid air cells are clear. The ventricles and sulci are within normal limits for age. There is no mass, hematoma, midline shift. The major vascular flow-voids at the skull base are well maintained. IMPRESSION: No acute intracranial abnormality. ACT 112: Negative or not required by law. The above report was generated using voice recognition software. It may contain grammatical, syntax or spelling errors. Electronically signed by: Obey Issa M.D. 07/03/2019 11:37 AM
[2019-07-03] MEDS: SERTRALINE HCL 100 MG TABLET PO SCH (12:03)
[2019-07-03] MEDS: ENOXAPARIN INJ 40 MG/0.4 ML SYR SQ SCH (12:03)
[2019-07-03] MEDS: PANTOprazole 40 MG TAB PO SCH (12:03)
--- NOTE | 2019-07-03 14:07 | Hospitalist Progress Note ---
Date of Service July 03, 2019 Assessment & Plan (1) TIA (transient ischemic attack): Symptoms have resolved. Brain MRI is normal. TIA suspected. Cont to monitor on telemetry for 24 hours and medical therapy started for secondary prophylaxis including ASA 81mg daily and simvastatin changed to Lipitor 40mg HS. Pt strongly advised to quit smoking. Appreciate Neuro recommendations. (2) EMILE (obstructive sleep apnea): cont CPAP HS (3) Smoker: Strongly advised to quit. Declines nicoderm at this time. States he has Chantix at home and plans to start that at discharge. (4) Depression: cont sertraline per home regimen. (5) Acid reflux: cont PPI per home regimen. (6) DVT prophylaxis: Lovenox Full Dispo-to home in am. Elina Palacios DO [facility] Hospitalist Subjective 49 yo smoker who denies heart disease or prior stroke presents with acute onset L facial and L arm numbness which lasted overnight. He reports also reading the names of people he is well-acquainted with and couldnt remember who they were despite reading their name. He reported some comprehension issues, and also some difficulty speaking. This has now resolved with workup to include brain MRI and vascular imaging negative for stroke. Echo is pending. No evidence of arrhythmia at this time. He denies any chest pain, shortnes sof breath, headache, visual changes, or dysphagia. He denies any issues with ambulation and appears to be doing much better today. Review of Systems Review of Systems: All systems reviewed & are unremarkable except as noted in HPI & below Physical Exam Physical Exam: CONSTITUTIONAL: WNWD, vitals as above, generally well- appearing EYES: EOMI bilaterally, PERRL, normal conjunctivae, no scleral icterus ENT: MMM RESPIRATORY: clear with good air movement except for mild rhonchi at the bases. No wheezing or rales. Normal respiratory effort CARDIOVASCULAR: regular rate and rhythm, S1 and 2 heard without murmurs, gallops or rubs, no JVD, no peripheral edema GASTROINTESTINAL: normal bowel sounds, soft, nontender, nondistended MUSCULOSKELETAL: strength 5/5 throughout, head is normocephalic and atraumatic SKIN: warm and dry NEUROLOGIC: CN 2-12 intact, no sensory deficit, normal cognition, normal speech, no tremor. No gross focal deficits. PSYCHIATRIC: alert cooperative and oriented to person, place and time. Results & Data Vital Signs (Past 12 Hours) Vital Signs Temp Pulse Pulse Resp BP BP BP 07/03/19 10:22 36.8 C 93 H 20 116/81 07/03/19 09:54 96 H 20 130/79 07/03/19 08:55 99 H 16 123/82 07/03/19 07:31 85 20 114/77 07/03/19 06:07 88 18 143/96 H 07/03/19 05:30 93 H 22 140/91 07/03/19 05:00 94 H 16 142/98 H 07/03/19 04:31 94 H 23 151/77 H 07/03/19 04:27 100 H 24 136/96 07/03/19 04:26 36.8 C 100 H 18 136/96 Pulse Ox 07/03/19 10:22 93 07/03/19 09:54 95 07/03/19 08:55 95 07/03/19 07:31 96 07/03/19 06:07 96 07/03/19 05:30 95 07/03/19 05:00 96 07/03/19 04:31 97 07/03/19 04:27 97 07/03/19 04:26 97 Laboratory Results Short CBC 07/03/19 Range/Units 04:37 WBC 12.41 H (4.8-10.8) K/uL Hgb 15.8 (14.0-18.0) g/dL Hct 45.6 (42-52) % Plt Count 203 (130-400) K/uL BMP 07/03/19 04:37 Sodium 137 Potassium 3.7 Chloride 104 Carbon Dioxide 27 BUN 15 Creatinine 1.02 Glucose 112 H Calcium 8.8 Cardiac Enzymes 07/03/19 Range/Units 04:37 Troponin I < 0.015 (0-0.045) ng/ml Liver Function 07/03/19 Range/Units 04:37 Total Bilirubin 0.5 (0.2-1) mg/dl AST 17 (15-37) U/L ALT 28 (12-78) U/L Alkaline Phosphatase 69 (45-117) U/L Albumin 3.8 (3.4-5.0) gm/dl Diagnostic Findings MR brain wo con HISTORY: Mental status change tia TECHNIQUE: Multiplanar multisequence MRI of the brain was performed without the use of contrast. COMPARISON STUDY: None. FINDINGS: There are no areas of restricted diffusion to suggest acute infarction. The midline structures are intact. The paranasal sinuses are clear. The mastoid air cells are clear. The ventricles and sulci are within normal limits for age. There is no mass, hematoma, midline shift. The major vascular flow-voids at the skull base are well maintained. IMPRESSION: No acute intracranial abnormality. Medications Administered Current Inpatient Medications Acetaminophen (Tylenol) 650 mg PO Q4H PRN PRN Reason: Pain or Fever Stop: 08/02/19 10:20 Aspirin (Ecotrin Ectab) 81 mg PO QAM [facility] Stop: 08/03/19 08:59 Atorvastatin Calcium (Lipitor) 40 mg PO HS [facility] Stop: 08/02/19 20:59 Clopidogrel Bisulfate (Plavix) 75 mg PO QAM [facility] Stop: 08/03/19 08:59 Enoxaparin Sodium (Lovenox) 40 mg SQ QAM [facility] Stop: 08/02/19 10:20 Last Admin: 07/03/19 12:03 Dose: 40 mg Documented by: Lorazepam (Ativan) 0.25 mg in 0.5 mls @ 0.5 mls/min IV Q4H PRN PRN Reason: Anxiety Stop: 08/02/19 10:20 Miscellaneous Information (Pharmacist Discharge Med Rec Consult) 1 ea N/A UD PRN PRN Reason: Consult Stop: 08/02/19 10:20 Nitroglycerin (Nitrostat) 0.4 mg SL UD PRN PRN Reason: Chest Pain Stop: 08/02/19 10:20 Pantoprazole Sodium (Protonix) 40 mg PO DAILY TEJAS Stop: 08/02/19 10:20 Last Admin: 07/03/19 12:03 Dose: 40 mg Documented by: Sertraline HCl (Zoloft) 200 mg PO DAILY TEJAS Stop: 08/02/19 10:20 Last Admin: 07/03/19 12:03 Dose: 200 mg Documented by: Tramadol HCl (Ultram) 25 mg PO Q4H PRN PRN Reason: Pain Stop: 08/02/19 10:20
[2019-07-03] MEDS ORDERED: ZOLPIDEM TARTRATE 5 MG TAB PO PRN (20:37)
[2019-07-03] MEDS ORDERED: ATORVASTATIN 40 MG TAB PO SCH (21:00)
[2019-07-04 07:15] LABS: Hemoglobin 14.9 g/dL (14.0-18.0); Mean Corpuscular Hemoglobin 30.8 pg (25-34); Mean Corpuscular Hgb Conc 33.9 g/dL (32-36); Mean Corpuscular Volume 91.1 fL (80-100); Platelet Count 182 K/uL (130-400); RDW Coefficient of Variation 12.6 % (11.5-14.5); RDW Standard Deviation 42.2 fL (36.4-46.3); Red Blood Count 4.83 M/uL (4.7-6.1); White Blood Count 8.79 K/uL (4.8-10.8)
[2019-07-04 07:16] LABS: Basophils # (auto) 0.02 K/uL (0-0.2); Basophils % (auto) 0.2 %; Eosinophils # (auto) 0.29 K/uL (0-0.5); Eosinophils % (auto) 3.3 %; Immature Granulocytes # (auto) 0.01 K/uL (0.00-0.02); Immature Granulocytes % (auto) 0.1 %; Lymphocytes # (auto) 4.27 K/uL (1.2-3.4); Lymphocytes % (auto) 48.6 %; Mean Platelet Volume 9.2 fL (7.4-10.4); Monocytes # (auto) 0.44 K/uL (0.11-0.59); Neutrophils # (auto) 3.76 K/uL (1.4-6.5); Neutrophils % (auto) 42.8 %
[2019-07-04 07:51] LABS: BUN Creatinine Ratio 13.1 (10-20); Calcium 8.9 mg/dl (8.5-10.1); Est GFR (African American) 112.8; Est GFR (Non-African American) 97.3
[2019-07-04] MEDS: PANTOprazole 40 MG TAB PO SCH (08:36)
[2019-07-04] MEDS: SERTRALINE HCL 100 MG TABLET PO SCH (08:36)
[2019-07-04] MEDS: ENOXAPARIN INJ 40 MG/0.4 ML SYR SQ SCH (08:36)
[2019-07-04] MEDS ORDERED: ASPIRIN 81 MG ECTAB PO SCH (09:00)
[2019-07-04] MEDS ORDERED: CLOPIDOGREL BISULFATE 75 MG TAB PO SCH (09:00)
--- NOTE | 2019-07-04 12:52 | Electrocardiogram Report ---
Test Reason : Blood Pressure : / mmHG Vent. Rate : 093 BPM Atrial Rate : 093 BPM P-R Int : 160 ms QRS Dur : 082 ms QT Int : 356 ms P-R-T Axes : 054 048 048 degrees QTc Int : 442 ms Normal sinus rhythm Normal ECG No previous ECGs available Confirmed by Stan Granados ([id number]) on 07/04/2019 12:51:29 PM Referred By: REFERRED SELF Confirmed By:Stan Granados
[2019-07-04] MEDS ORDERED: STROKE PATIENT DISCHARGE STA (13:27)
--- NOTE | 2019-07-04 13:28 | Discharge Summary ---
Date of Service July 04, 2019 Admission HPI Per Admitting Provider History obtained from patient, family, and records. Medical history significant for EMILE on CPAP, mood disorder, GERD, ongoing tobacco abuse. 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 Patient also noted transient left-sided facial, left upper extremity numbness symptoms along with achy headache symptoms without blurred vision. May have had a short- lived episode sometime ago as per . Stroke alert called upon arrival at the ER. Symptoms currently improving as per patient. 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 Admission Exam Per Admitting Provider GENERAL: Comfortable, pleasant, obese, no respiratory distress SKIN: Normal color, warm HEENT: Healed scar on the forehead, pink palpebral conjunctivae, no ptosis, moist buccal mucosa NECK : Supple, short neck, no tenderness CHEST : CTA, no tenderness HEART : RRR, no obvious murmurs ABDOMEN: Some distention, nontender EXTREMITIES : No LE swelling/tenderness, no other conspicuous deformities noted NEUROLOGIC : Coherent, no facial asymmetry, no other gross focality Principal Diagnosis TIA tobacco use PFO Discharge Data Allergies Allergy/AdvReac Type Severity Reaction Status Date / Time No Known Allergies Allergy Unverified 07/03/19 04:49 Consultations 07/03/19 05:44 ED Decision to Admit Stat 07/03/19 10:21 Consult Case Management - Discharge Planning Routine Consult Neurology Routine Ordered Studies 07/03/19 04:33 CT head/brain wo con Urgent 07/03/19 05:33 CT angio head w con Stat CT angio neck with con Stat 07/03/19 10:21 MR angio head wo con Routine MR brain wo con Routine Hospital Course (1) TIA (transient ischemic attack): Symptoms have resolved. Brain MRI is normal. TIA suspected. Cont to mo nitor on telemetry for 24 hours and medical therapy started for secondary prophylaxis including ASA 81mg daily and simvastatin changed to Lipitor 40mg HS. Pt strongly advised to quit smoking. Neurology was consulted and agreed with TIA and recommended continued secondary stroke prophlaxis and close followup with them as outpatient in the next 8 weeks. (2) EMILE (obstructive sleep apnea): cont CPAP HS (3) Smoker: Strongly advised to quit. Declines nicoderm at this time. States he has Chantix at home and plans to start that at discharge. Total Time Total Time Spent Total Time Spent (In Minutes): 60 Total Time Includes: Examination of the Patient, Discharge Planning, Medication Reconciliation and Communication With Other Providers Discharge Plan Discharge Items Patient Disposition: Home - Self-Care Reason For Visit: TIA Discharge Diagnosis: TIA tobacco use PFO Health Concerns: Quitting smoking Activity: Resume your previous activity Non-emergency contact: Primary Care Provider Call non-emergency contact if: you have any medication questions, your symptoms worsen, your pain is not controlled, your pain is worsening, your pain is unusual for you, your pain is concerning for you and you have a fever Follow-up/Referrals: Cristian Hunter MD [Primary Care Provider] - Brayan Gates, [Physician] - Diet: Regular Addtl Attending Provider Instructions: Please take all medications as instructed on discharge list below. New medications for you include aspirin and atorvastatin, which are given to prevent stroke or TIA in the future. Please follow-up with [facility] in 4 weeks time. It is recommended that you see your primary care physician within one week of discharge from the hospital to ensure you are still doing well. Someone will contact you after the weekend to help set this up. It is strongly recommended that you quit smoking as this is bad for your health and raises your risk of heart disease and stroke. It sounds like you have a great plan for this with the Chantix, which is encouraged. It was a pleasure taking care of you! Please call if you have any questions or problems. You can reach a [facility] hospitalist on duty at [facility] 24 hours a day by calling [phone]. Take care of yourself. Elina Palacios DO [facility] Hospitalist Pending Studies at Discharge: No Stand-Alone Forms: Medications to Prevent Stroke, My [facility], Work/School Release (Inpt), Smoking Cessation Medications and DC Order Prescriptions: New atorvastatin 40 mg Tablet 40 mg PO HS Qty: 30 RF: 1 aspirin [Ecotrin Low Strength] 81 mg Tablet,Delayed Release (Dr/Ec) 81 mg PO QAM Qty: 90 RF: 1 Continued sertraline 100 mg Tablet 200 mg PO DAILY RF: 0 esomeprazole magnesium [Nexium] 40 mg Capsule,Delayed Release(Dr/Ec) 40 mg PO DAILY RF: 0 zolpidem 10 mg Tablet 10 mg PO HS PRN (Reason: Sleep) RF: 0 Discharge Orders: Discharge Order (Routine); Ordered 07/04/19 Ordered By: Elina Palacios Admission Data Admit Date/Time: 07/03/19 06:22 Attending Provider: Elina Palacios Admit Provider: Brandon Pearce Primary Care Provider: Cristian Hunter Other Providers: Brandon Pearce ; Mendy Reynolds ; Reagan Breaux Kathleen ; Brayan Gates Other Interventions: Discharge Summary Assessment (RN) Last Done: 07/04/19 14:18 DC Date/Time DO NOT enter until pt leaves facility: 07/04/19 14:55
--- NOTE | 2019-07-04 14:32 | Pharmacy Report ---
Pharmacist Stroke Counseling - Date of Service July 04, 2019 - Scope: Pharmacy has been consulted to provide medication discharge counseling for this patient admitted with transient ischemic attack as per the Pharmacist Discharge Counseling for Stroke Patients Protocol. - Medications on Discharge: Home Medications Medication Instructions Recorded Confirmed esomeprazole magnesium [Nexium] 40 mg PO DAILY 07/03/19 07/03/19 sertraline 200 mg PO DAILY 07/03/19 07/03/19 zolpidem 10 mg PO HS PRN 07/03/19 07/03/19 New Rx's Medication Instructions Recorded aspirin [Ecotrin Low Strength] 81 mg PO QAM #90 tab 07/04/19 atorvastatin 40 mg PO HS #30 tab 07/04/19 - Action: The above medications, specifically ones for stroke treatment/prophylaxis, have been reviewed in detail with the patient and/or patient agricultural sales representative(s) prior to discharge. This includes indication, common adverse reactions, drug interactions, and medication administration. Medication counseling has been employed using the teach-back method to ensure understanding. - Outcome: The patient and/or patient agricultural sales representative(s) have demonstrated understanding of the medications. Please note, they are aware that the pharmacist will call them within 72 hours post-discharge to confirm that the appropriate medications are being taken and answer any further medication related questions the patient might have at that time. Contact information Individual to be contacted: Self Relationship to patient (if applicable): Phone number: [phone] Best time to call: Anytime Additional comments: Met with patient and his for pharmacy stroke medication counseling. Reviewed new medications to prevent stoke including aspirin and atorvastatin. Counseling on how to take the medications, significant drug interactions, & side effects (both common and severe). Their son is a pharmacist (who was actually an internal controls consultant here at [employer]). They said he may have some questions. I advised them to write them down and we can discuss whenever we call for the follow up phone call. Thank you for allowing pharmacy to be involved in the care of this patient. Please call [phone] or [phone] with any additional questions
[2019-07-04] MEDS ORDERED: SIMVASTATIN 40 MG TAB PO SCH (21:00)
--- NOTE | 2019-07-06 11:41 | Pharmacy Report ---
Pharmacist Post D/C Phone Note - Phone Note: Date of phone call: July 06, 2019. Individual with whom pharmacist spoke to: TAD GRIFFIN III The following questions were reviewed during the phone call with responses listed below each: Can you tell me the medications that you are currently taking as well as when and how you take each medication? -See Table Below When have you missed any doses of your medications? - none What side effects are you having from your medications, specifically, the new medications you were started on? - none reported What questions do you have about your medications? - none What problems are you having obtaining your medications? - none When is your next appointment with your primary care doctor? - fridayjuly 09 Additional comments: - Patient very friendly to talk with today. Did review medication list together, including new medications of aspirin and atorvastatin. Patient asking why he needs to be on atorvastatin. Mentioned to him that its helping to decrease his cholesterol and also helps with stroke prevention/stabilization of plaque. Asked patient about smoking cessation, since discussed at discharge. Patient has been doing well with it and is on chantix at home which is helping to decrease the urge to smoke. Talked about how smoking can increase heart disease and stroke. No other pertinent positives on interview today As per the Pharmacist Discharge Counseling for Stroke Patients Protocol, this phone call has been completed within 72 hours of discharge. Thank you for allowing us to be involved in the care of this patient. - Home Medications: Home Medications Medication Instructions Recorded Confirmed esomeprazole magnesium [Nexium] 40 mg PO DAILY 07/03/19 07/03/19 sertraline 200 mg PO DAILY 07/03/19 07/03/19 zolpidem 10 mg PO HS PRN 07/03/19 07/03/19 New Rx's Medication Instructions Recorded aspirin [Ecotrin Low Strength] 81 mg PO QAM #90 tab 07/04/19 atorvastatin 40 mg PO HS #30 tab 07/04/19
== END 2019-07-04 14:55 | disposition home or self-care (01) ==
LOC: 2W 04:11 → ED 04:11 → 2W 09:54